=== PATIENT | female | born 1985 | race Two or more races ===

== ENCOUNTER 2020-10-26 00:46 | Inpatient (IN) | payer OTHER ==
[~2020-10-26] VITALS: Ht 170.2 cm; Wt 140.6 kg
--- NOTE | 2020-10-26 00:55 | NUR ---
cough/congestion and sob x2days to er bed 2
[2020-10-26 02:14] LABS: BASOPHILS # (AUTO) 0.1 /CMM (0.0-0.2); BASOPHILS % (AUTO) 0.5 % (0.0-2.0); EOSINOPHILS % (AUTO) 6.2 % (0.0-6.0); HEMATOCRIT 34 % (33-45); HEMOGLOBIN 10.6 g/dL (11.5-14.8); LYMPHOCYTES # (AUTO) 1.6 /CMM (0.8-4.8); LYMPHOCYTES % (AUTO) 15.2 % (20.0-44.0); MEAN CORPUSCULAR HGB CONC 31 g/dl (31.0-36.0); MEAN CORPUSCULAR VOLUME 69 fL (82-100); MONOCYTES # (AUTO) 0.5 /CMM (0.1-1.30); MONOCYTES % (AUTO) 5.4 % (2.0-12.0); NEUTROPHILS # (AUTO) 7.4 /CMM (1.8-8.9); NEUTROPHILS % (AUTO) 72.7 % (43.0-81.0); PLATELET COUNT (AUTO) 407 /CMM (150-450); RED BLOOD CELL COUNT(AUTO) 4.92 MIL/uL (4.0-5.2); WHITE BLOOD COUNT (AUTO) 10.2 K/uL (4.3-11.0)
[2020-10-26 02:22] LABS: CALCIUM, SERUM 8.8 mg/dL (8.5-10.1); CARBON DIOXIDE 26 mmol/L (21-32); CHLORIDE 102 mmol/L (98-107); CREATININE 0.8 mg/dL (0.6-1.3); GLUCOSE 117 mg/dL (74-106); POTASSIUM 3.9 mmol/L (3.5-5.1); SODIUM SERUM 135 mmol/L (136-145); UREA NITROGEN, BLOOD 10 mg/dL (7-18)
[2020-10-26] MEDS ORDERED: IOHEXOL-350 100 ML VIAL IV ONE (02:27)
[2020-10-26] MEDS ORDERED: CT SWABBABLE VALVE TRANS SET 1 EA INFUS.SET MC ONE (02:27)
[2020-10-26] MEDS ORDERED: IV NS 0.9% 250 ML IV ONE (02:27)
[2020-10-26 02:32] LABS: D-DIMER 2.07 mg/L(FEU (0.17-0.50)
[2020-10-26 02:45] LABS: BASOPHILS % (MANUAL) 0 % (0.0-2.0); EOSINOPHILS % (MANUAL) 7 % (0-4); LYMPHOCYTES % (MANUAL) 20 % (16-48); MONOCYTES % (MANUAL) 9 % (0-11.0); NEUTROPHILS % (MANUAL) 64 (42-76)
--- NOTE | 2020-10-26 02:50 | NUR ---
pt taken to ct
[2020-10-26] MEDS ORDERED: AZIT250T13 PO (04:07)
--- NOTE | 2020-10-26 04:18 | NUR ---
covid swab collected and sent out
[2020-10-26] MEDS ORDERED: AZITHROMYCIN 500 MG in IV D5W 250 ML IV ONE (04:30)
[2020-10-26] MEDS ORDERED: CEFTRIAXONE 1GM BAG (ER ONLY) 1 GM/50 ML PIGGYBACK IV ONE (04:30)
[2020-10-26] MEDS ORDERED: predniSONE 50 MG TABLET PO ONE (04:30)
[2020-10-26] MEDS ORDERED: predniSONE 20 MG TABLET ONE (04:43)
[2020-10-26] MEDS ORDERED: AZITHROMYCIN 500 MG VIAL ONE (04:43)
--- NOTE | 2020-10-26 05:20 | NUR ---
CALLED NURSING SUP FOR BED
[2020-10-26 05:23] LABS: C-REACTIVE PROTEIN 3.8 mg/dL (0.0-0.9)
--- NOTE | 2020-10-26 05:34 | NUR ---
DR. STEPHENS SPEAKING WITH DR. BOWIE REGARDING ADMISSION
--- NOTE | 2020-10-26 05:37 | NUR ---
bed 109
--- NOTE | 2020-10-26 05:52 | NUR ---
report called in to dipak monson
[2020-10-26 06:00] VITALS: BP 146/81
[2020-10-26] MEDS ORDERED: MAG HYDROX/AL HYDROX/SIMETH 30 ML UDC PO PRN (06:00)
[2020-10-26] MEDS ORDERED: ONDANSETRON HCL/PF 4 MG/2 ML VIAL IVP PRN (06:00)
[2020-10-26] MEDS ORDERED: MAGNESIUM HYDROXIDE 30 ML UDC PO PRN (06:00)
[2020-10-26] MEDS ORDERED: ZOLPIDEM TARTRATE 5 MG TABLET PO PRN (06:00)
[2020-10-26] MEDS ORDERED: Z GUARD REMEDY 2 OZ OINT TP PRN (06:00)
[2020-10-26] MEDS ORDERED: ACETAMINOPHEN 325 MG TABLET PO PRN (06:00)
--- NOTE | 2020-10-26 06:00 | NUR ---
ADMIT NOTE RECEIVED PATIENT FROM ER TO ROOM 109. PATIENT ABLE TO AMBULATE FROM GURNEY TO BED SAFELY. ALERT AND ORIENTED X4, ABLE TO MAKE NEEDS KNOWN. ON 8L VIA NASAL CANNULA, O2 SAT 94%. WITH PRODUCTIVE COUGH, PINK TINGED SPUTUM. NO SOB AT THIS TIME. DENIES ANY PAIN OR DISCOMFORT. WITH IV ACCESS ON RIGHT AC #20 PATENT AND INTACT. SKIN IS INTACT. ORIENTED PATIENT TO ROOM AND CALL LIGHT. BED LOCKED AND IN LOWEST POSITION. CALL LIGHT WITHIN REACH. WILL ENDORSE TO AM SHIFT.
--- NOTE | 2020-10-26 07:30 | NUR ---
RN OPENING NOTES RECEIVED PT AWAKE, A/O X4. ON 8L O2 VIA NASAL CANNULA, O2 SAT 94%. WITH PRODUCTIVE COUGH. NO SOB AT THIS TIME. DENIES ANY PAIN OR DISCOMFORT. IV ACCESS ON RAC #20 INTACT, PATENT AND FLUSHED. SKIN IS INTACT. AMBULATORY. SAFETY MEASURES IN PLACE. CALL LIGHT WITHIN REACH. BED LOCKED AND IN LOWEST POSITION WITH SIDE RAILS UP X2. WILL CONTINUE TO MONITOR.
[2020-10-26 08:00] VITALS: BP 149/98
[2020-10-26] MEDS: DEXAMETHASONE SOD PHOSPHATE 10 MG/ML VIAL IV SCH (08:26)
[2020-10-26] MEDS ORDERED: ALBUTEROL SULFATE INH 18 GM HFA.AER.AD IH PRN (10:30)
[2020-10-26] MEDS: OSELTAMIVIR PHOSPHATE 75 MG CAPSULE PO SCH ×2 (10:51→17:37)
[2020-10-26] MEDS: methylPREDNISolone SOD SUCC 125 MG/2ML VIAL IV SCH ×2 (10:51→17:38)
[2020-10-26] MEDS: ENOXAPARIN SODIUM 40 MG/0.4 ML DISP.SYRIN SQ SCH (10:54)
[2020-10-26 12:00] VITALS: BP 144/89
[2020-10-26 16:00] VITALS: BP 138/78
--- NOTE | 2020-10-26 18:55 | NUR ---
RN CLOSING NOTES NO SIGNIFICANT CHANGES THROUGHOUT THE SHIFT. NO SOB OR ANY DISTRESS. NO PAIN REPORTED AT THIS TIME. ALL DUE MEDS GIVEN. NEEDS ATTENDED. KEPT CLEAN AND DRY. SAFETY MEASURES STILL IN PLACE. ISOLATION PRECAUTIONS MAINTAINED. WILL ENDORSE TO NIGHT RN FOR [place].
[2020-10-26 20:00] VITALS: BP 150/83
[2020-10-26] MEDS: CEFTRIAXONE 1 G in IV D5W 50 ML IV SCH (20:38)
[2020-10-26] MEDS ORDERED: HYDROCODONE/APAP 5/325MG TABLET PO PRN (21:00)
[2020-10-27] VITALS: BP 145/71
[2020-10-27] MEDS: methylPREDNISolone SOD SUCC 125 MG/2ML VIAL IV SCH ×3 (01:29→17:04)
[2020-10-27 04:00] VITALS: BP 151/89
[2020-10-27 07:05] LABS: BASOPHILS % (AUTO) 0.1 % (0.0-2.0); HEMATOCRIT 34 % (33-45); HEMOGLOBIN 10.5 g/dL (11.5-14.8); LYMPHOCYTES # (AUTO) 1.3 /CMM (0.8-4.8); LYMPHOCYTES % (AUTO) 8.3 % (20.0-44.0); MEAN CORPUSCULAR HGB CONC 31 g/dl (31.0-36.0); MEAN CORPUSCULAR VOLUME 70 fL (82-100); MONOCYTES # (AUTO) 0.4 /CMM (0.1-1.30); MONOCYTES % (AUTO) 2.4 % (2.0-12.0); NEUTROPHILS # (AUTO) 13.8 /CMM (1.8-8.9); NEUTROPHILS % (AUTO) 89.2 % (43.0-81.0); PLATELET COUNT (AUTO) 457 /CMM (150-450); RED BLOOD CELL COUNT(AUTO) 4.89 MIL/uL (4.0-5.2); WHITE BLOOD COUNT (AUTO) 15.5 K/uL (4.3-11.0)
[2020-10-27 07:12] LABS: CALCIUM, SERUM 8.9 mg/dL (8.5-10.1); CREATININE 0.8 mg/dL (0.6-1.3); MAGNESIUM 2.2 mg/dL (1.8-2.4); PHOSPHORUS 3.5 mg/dL (2.5-4.9); POTASSIUM 4.1 mmol/L (3.5-5.1)
--- NOTE | 2020-10-27 07:50 | NUR ---
RN NOTE PATIENT IS IN BED WITH HOB AT SEMI FOWLERS POSITION. PATIENT IS ON 8L NC WITH NO SIGNS OF LABORED BREATHING. PATIENT IS AOX4. RAC #20 IS PATENT AND INTACT. BED IS LOCKED IN THE LOWEST POSITION, 3 GUARD RAILS RAISED, CALL TEJEDA WITHIN REACH, AND ALL HOSPITAL SAFETY PRECAUTIONS ARE BEING FOLLOWED. WILL CONTINUE TO MONITOR THROUGHOUT SHIFT.
[2020-10-27 08:00] VITALS: BP 149/93
[2020-10-27] MEDS: OSELTAMIVIR PHOSPHATE 75 MG CAPSULE PO SCH ×2 (08:28→16:47)
[2020-10-27] MEDS: AZITHROMYCIN 250 MG TABLET PO SCH (08:28)
[2020-10-27] MEDS: DEXAMETHASONE SOD PHOSPHATE 10 MG/ML VIAL IV SCH (08:29)
[2020-10-27] MEDS: ENOXAPARIN SODIUM 40 MG/0.4 ML DISP.SYRIN SQ SCH (08:31)
[2020-10-27 08:49] LABS: LYMPHOCYTES % (MANUAL) 7 % (16-48); NEUTROPHILS % (MANUAL) 90 (42-76)
[2020-10-27 08:50] LABS: MONOCYTES % (MANUAL) 3 % (0-11.0)
--- NOTE | 2020-10-27 11:49 | NUR ---
RN NOTE NOTIFIED [employer]IONICS SYSTEMS TECHNICIAN KJ GOMEZ FOR BP 173/98.
[2020-10-27 12:00] VITALS: BP 173/98
--- NOTE | 2020-10-27 15:09 | NUR ---
RN NOTE PCR TEST COLLECTED AND RETURNED TO LAB.
[2020-10-27 16:00] VITALS: BP 178/94
--- NOTE | 2020-10-27 16:18 | NUR ---
RN NOTE NOTIFIED CHERYL UNDERWOOD OF .
[2020-10-27] MEDS: LISINOPRIL (5MG) 5 MG TABLET PO SCH (16:47)
[2020-10-27] MEDS: LORAZEPAM INJ 2 MG/ML VIAL IV PRN (16:56)
--- NOTE | 2020-10-27 18:36 | NUR ---
RN NOTE PATIENT IS IN BED WITH HOB AT SEMI FOWLERS POSITION. PATIENT IS ON 8L NC WITH NO SIGNS OF LABORED BREATHING. PATIENT IS AOX4. RAC #20 IS PATENT AND INTACT. BED IS LOCKED IN THE LOWEST POSITION, 3 GUARD RAILS RAISED, CALL TEJEDA WITHIN REACH, AND ALL HOSPITAL SAFETY PRECAUTIONS ARE BEING FOLLOWED. ALL DUE MEDS GIVEN AND PATIENT REMAINED STABLE THROUGHOUT SHIFT. WILL ENDORSE TO TOBACCO WAREHOUSE MANAGER RN.
[2020-10-27 20:00] VITALS: BP 160/88
--- NOTE | 2020-10-27 20:08 | NUR ---
RN NOTE PATIENT ALERT AND ORIENTED X4, ABLE TO MAKE NEEDS KNOWN. ON O2 8L VIA NASAL CANNULA, NO SIGNS OF RESPIRATORY DISTRESS. DENIES ANY PAIN. AMBULATORY. IV ACCESS ON RIGHT AC #20 PATENT AND INTACT. BED LOCKED AND IN LOWEST POSITION. CALL LIGHT WITHIN REACH. ALL NEEDS ANTICIPATED.
[2020-10-27] MEDS: CEFTRIAXONE 1 G in IV D5W 50 ML IV SCH (20:22)
[2020-10-28] VITALS: BP 147/87
[2020-10-28] MEDS: methylPREDNISolone SOD SUCC 125 MG/2ML VIAL IV SCH ×3 (02:44→17:19)
[2020-10-28 04:00] VITALS: BP 153/86
[2020-10-28 06:36] LABS: BASOPHILS # (AUTO) 0.1 /CMM (0.0-0.2); BASOPHILS % (AUTO) 0.4 % (0.0-2.0); EOSINOPHILS % (AUTO) 0.2 % (0.0-6.0); HEMATOCRIT 35 % (33-45); HEMOGLOBIN 10.7 g/dL (11.5-14.8); LYMPHOCYTES # (AUTO) 1.3 /CMM (0.8-4.8); LYMPHOCYTES % (AUTO) 7.7 % (20.0-44.0); MEAN CORPUSCULAR HGB CONC 31 g/dl (31.0-36.0); MEAN CORPUSCULAR VOLUME 70 fL (82-100); MONOCYTES # (AUTO) 0.5 /CMM (0.1-1.30); NEUTROPHILS # (AUTO) 14.7 /CMM (1.8-8.9); NEUTROPHILS % (AUTO) 88.7 % (43.0-81.0); PLATELET COUNT (AUTO) 434 /CMM (150-450); RED BLOOD CELL COUNT(AUTO) 4.95 MIL/uL (4.0-5.2); WHITE BLOOD COUNT (AUTO) 16.6 K/uL (4.3-11.0)
--- NOTE | 2020-10-28 06:52 | NUR ---
RN NOTE PATIENT ALERT AND ORIENTED X4 ON O2 8L VIA NASAL CANNULA, NO SIGNS OF RESPIRATORY DISTRESS. DENIES ANY PAIN. AMBULATORY. IV ACCESS ON RIGHT AC #20 PATENT AND INTACT. ALL DUE MEDS GIVEN ORDERED. NO SIGNIFICANT CHANGES DURING THIS SHIFT. BED LOCKED AND IN LOWEST POSITION. CALL LIGHT WITHIN REACH. WILL ENDORSE TO AM SHIFT.
[2020-10-28 07:19] LABS: CALCIUM, SERUM 8.5 mg/dL (8.5-10.1); CREATININE 0.7 mg/dL (0.6-1.3); MAGNESIUM 2.2 mg/dL (1.8-2.4); POTASSIUM 4.1 mmol/L (3.5-5.1)
--- NOTE | 2020-10-28 07:30 | NUR ---
RN OPENING NOTES RECEIVED PATIENT AWAKE ALERT AND ORIENTED. SATURATING 100% ON 8L NASAL CANNULA. ST ON TELEMETRY. PERIPHERAL LINE INTACT. NO COMPLAINS OF PAIN. AMBULATORY. SAFETY CHECKS IN PLACE. WILL CONTINUE TO MONITOR.
[2020-10-28 07:32] LABS: THYROID STIMULATING HORMONE 0.137 uIU/mL (0.358-3.74)
[2020-10-28 08:00] VITALS: BP 159/85
[2020-10-28] MEDS: OSELTAMIVIR PHOSPHATE 75 MG CAPSULE PO SCH ×2 (08:24→17:19)
[2020-10-28] MEDS: LISINOPRIL (5MG) 5 MG TABLET PO SCH (08:24)
[2020-10-28] MEDS: AZITHROMYCIN 250 MG TABLET PO SCH (08:25)
[2020-10-28] MEDS: ENOXAPARIN SODIUM 40 MG/0.4 ML DISP.SYRIN SQ SCH (08:26)
[2020-10-28 12:00] VITALS: BP 149/96
[2020-10-28 16:00] VITALS: BP 152/88
--- NOTE | 2020-10-28 16:00 | NUR ---
RN NOTE PER LAB, PCR SAMPLES ARE BEING SENT OUT AT 8PM EACH DAY. RESULTS ARE EXPECTED TO COME THE NEXT DAY AROUND 8-10PM.
--- NOTE | 2020-10-28 18:29 | NUR ---
RN CLOSING NOTES PATIENT REMAINS AWAKE ALERT AND ORIENTED. SATURATING 100% ON 8L NASAL CANNULA. STILL ST ON TELEMETRY. PERIPHERAL LINE INTACT. NO COMPLAINS OF PAIN. AMBULATORY. SAFETY CHECKS IN PLACE. WILL ENDORSE TO NIGHT RN FOR CONTINUITY OF CARE.
--- NOTE | 2020-10-28 19:45 | NUR ---
RN OPENING NOTE REC'D PT IN BED, A/O X4 ON 8L OF O2 VIA NASAL CANNULA WITH HUMIDIFICATION, NO SOB OR RESP DISTRESS NOTED. O2 SAT 99%. PT IS SINUS TACH ON TELE MONITOR WITH HEART RATE OF 103. PT BASELINE. PT IS AMBULATORY WITH STEADY GAIT. IV SITE RIGHT AC LEAKING, WILL REPLACE. IV SITE DISCONTINUED CATHETER INTACT GAUZE APPLIED WITH PRESSURE FOR 1MIN NO S/S OF BLEEDING NOTED. PT DENIES PAIN. ISOLATION PRECAUTIONS IN PLACE FOR PCR PENDING. SIDE RAILS UP X2 BED LOCKED IN LOWEST POSITION WITH BED ALARM [employer] ELECTRICAL SYSTEMS DESIGNER LIGHT WITHIN REACH. WILL CONT TO MONITOR CLOSELY THROUGHOUT SHIFT.
[2020-10-28 20:00] VITALS: BP 159/88
--- NOTE | 2020-10-28 20:30 | NUR ---
RN NOTE NEW IV SITE PLACED. RIGHT HAND #[id number]. GOOD BLOOD RETURN.
[2020-10-28] MEDS: CEFTRIAXONE 1 G in IV D5W 50 ML IV SCH (20:37)
[2020-10-29] VITALS (7 sets, daily range): BP systolic 140–173; BP diastolic 69–91
[2020-10-29] MEDS: methylPREDNISolone SOD SUCC 125 MG/2ML VIAL IV SCH ×2 (02:38→09:01)
[2020-10-29 05:56] LABS: HEMATOCRIT 34 % (33-45); HEMOGLOBIN 10.5 g/dL (11.5-14.8); LYMPHOCYTES # (AUTO) 1.4 K/uL (0.8-4.8); LYMPHOCYTES % (AUTO) 11.8 % (20.0-44.0); MEAN CORPUSCULAR HGB CONC 30 g/dl (31.0-36.0); MEAN CORPUSCULAR VOLUME 70 fL (82-100); MONOCYTES # (AUTO) 0.7 K/uL (0.1-1.30); MONOCYTES % (AUTO) 5.9 % (2.0-12.0); NEUTROPHILS # (AUTO) 9.9 K/uL (1.8-8.9); NEUTROPHILS % (AUTO) 82.3 % (43.0-81.0); PLATELET COUNT (AUTO) 476 K/uL (150-450); RED BLOOD CELL COUNT(AUTO) 4.88 MIL/uL (4.0-5.2)
--- NOTE | 2020-10-29 06:42 | NUR ---
RN OPENING NOTE NO SIGNIFICANT CHANGES.PT REMAINS ON 6L OF O2 VIA NASAL CANNULA WITH HUMIDIFICATION, NO SOB OR RESP DISTRESS NOTED. PT IS NSR HEART RATE 86. PT DENIES PAIN. ALL NEEDS ATTENDED ALL DUE MEDS GIVEN ORDERED. SAFETY MEASURES IN PLACE. SIDE RAILS UP X2 BED LOCKED IN LOWEST POSITION WITH BED ALARM ROADABILITY MACHINE OPERATOR LIGHT WITHIN REACH. WILL CONT TO MONITOR CLOSELY THROUGHOUT SHIFT. Addendum: 10/29/20 at 0654 by PATTY ALONSO RN DISREGARD THIS NOTE
--- NOTE | 2020-10-29 06:54 | NUR ---
RN CLOSING NOTE NO SIGNIFICANT CHANGES. PT REMAINS ON 6L OF O2 VIA SIMPLE MASK. NO SOB OR RESP DISTRESS NOTED. PT IS NSR HEART RATE 83. PT DENIES PAIN. ALL NEEDS ATTENDED ALL DUE MEDS GIVEN ORDERED. SAFETY MEASURES IN PLACE. APPLICABLE ISOLATION PRECAUTIONS IN PLACE. SIDE RAILS UP X2 BED LOCKED IN LOWEST POSITION WITH BED ALARM DIETITIAN ASSISTANT LIGHT WITHIN REACH. WILL ENDORSE TO DAY SHIFT FOR CONTINUATION OF CARE
[2020-10-29 07:16] LABS: CALCIUM, SERUM 8.2 mg/dL (8.5-10.1); CREATININE 0.6 mg/dL (0.6-1.3); POTASSIUM 4.1 mmol/L (3.5-5.1)
[2020-10-29 07:17] LABS: MAGNESIUM 2.4 mg/dL (1.8-2.4)
--- NOTE | 2020-10-29 07:50 | NUR ---
GEOPHYSICAL ENGINEER OPENING NOTE PATIENT IS IN BED RESTING, PATIENT IS IN NO ACUTE DISTRESS. PATIENT IS ON OXYGEN ON 8L, TOLERATING WELL SETTING 98% PATIENT IS ON TELE MONITOR READING SINUS TACHY. SAFETY PRECAUTIONS ARE ON BED IS LOCKED IN THE LOWEST POSITION, WITH SIDE RAILS UP, CALL LIGHT WITHIN REACH, WILL CONTINUE TO MONITOR CLOSELY.
[2020-10-29] MEDS: LISINOPRIL (5MG) 5 MG TABLET PO SCH (09:01)
[2020-10-29] MEDS: OSELTAMIVIR PHOSPHATE 75 MG CAPSULE PO SCH ×2 (09:01→16:57)
[2020-10-29] MEDS: AZITHROMYCIN 250 MG TABLET PO SCH (09:01)
[2020-10-29] MEDS: ENOXAPARIN SODIUM 40 MG/0.4 ML DISP.SYRIN SQ SCH (09:03)
--- NOTE | 2020-10-29 18:37 | NUR ---
SPRAY DYER CLOSING NOTE PATIENT IS IN BED RESTING, PATIENT IS IN NO ACUTE DISTRESS. PATIENT IS ON OXYGEN ON 8L, TOLERATING WELL SETTING 98% PATIENT IS ON TELE MONITOR READING SINUS TACHY. SAFETY PRECAUTIONS ARE ON BED IS LOCKED IN THE LOWEST POSITION, WITH SIDE RAILS UP, CALL LIGHT WITHIN REACH, ENDORSE PATIENT TO FIRE TECHNOLOGY INSTRUCTOR NURSE.
[2020-10-29] MEDS: LORAZEPAM INJ 2 MG/ML VIAL IV PRN (20:15)
--- NOTE | 2020-10-29 20:15 | NUR ---
WEIGHMASTER LEAD NOTES PT ANXIOUS AT THIS TIME AND REQUESTING FOR ATIVAN. ATIVAN GIVEN ORDERED. WILL CONTINUE TO MONITOR.
[2020-10-29] MEDS: CEFTRIAXONE 1 G in IV D5W 50 ML IV SCH (20:18)
[2020-10-30] VITALS: BP 158/77
[2020-10-30 04:00] VITALS: BP 150/85
[2020-10-30 06:01] LABS: BASOPHILS % (AUTO) 0.1 % (0.0-2.0); HEMATOCRIT 35 % (33-45); HEMOGLOBIN 10.7 g/dL (11.5-14.8); LYMPHOCYTES % (AUTO) 18.3 % (20.0-44.0); MEAN CORPUSCULAR HGB CONC 31 g/dl (31.0-36.0); MEAN CORPUSCULAR VOLUME 69 fL (82-100); MONOCYTES # (AUTO) 0.7 K/uL (0.1-1.30); MONOCYTES % (AUTO) 6.6 % (2.0-12.0); NEUTROPHILS # (AUTO) 8.4 K/uL (1.8-8.9); PLATELET COUNT (AUTO) 479 K/uL (150-450); RED BLOOD CELL COUNT(AUTO) 4.97 MIL/uL (4.0-5.2); WHITE BLOOD COUNT (AUTO) 11.1 K/uL (4.3-11.0)
[2020-10-30 06:10] LABS: CREATININE 0.8 mg/dL (0.6-1.3); MAGNESIUM 2.1 mg/dL (1.8-2.4); POTASSIUM 3.9 mmol/L (3.5-5.1)
--- NOTE | 2020-10-30 06:18 | NUR ---
REPAIRER MAINTENANCE BUILDING NOTES AWAKE & RESPONSIVE. NOT IN ANY DISTRESS. NO SOB NOTED. DENIES ANY PAIN OR DISCOMFORT AT THIS TIME. ON TELE SR @ 86 WITH IV-HL PATENT & INTACT. MONITORED ACCORDINGLY. CALL LIGHT WITHIN REACH. BED IN LOWEST POSITION. SR UP X 2 FOR SAFETY. WILL ENDORSE TO NEXT SHIFT.
--- NOTE | 2020-10-30 07:30 | NUR ---
SENIOR LINUX UNIX ADMINISTRATOR OPENING NOTES Patient is alert and oriented. Patient is breathing even and unlabored. On 3 liters with 02 sat of 99%. Patient noted with 20 gauze right hand iv site saline lock. Will continue to monitor. Call light with in reach.
[2020-10-30 08:00] VITALS: BP 150/85
[2020-10-30] MEDS ORDERED: methylPREDNISolone SOD SUCC 40 MG/ML VIAL IV SCH (09:00)
[2020-10-30 09:06] VITALS: BP 165/85
[2020-10-30] MEDS: LISINOPRIL (5MG) 5 MG TABLET PO SCH (09:06)
[2020-10-30] MEDS: OSELTAMIVIR PHOSPHATE 75 MG CAPSULE PO SCH (09:06)
[2020-10-30] MEDS: AZITHROMYCIN 250 MG TABLET PO SCH (09:06)
[2020-10-30] MEDS: ENOXAPARIN SODIUM 40 MG/0.4 ML DISP.SYRIN SQ SCH (09:17)
[2020-10-30 10:20] LABS: ABG BASE EXCESS 2.4 mmol/L; ABG OXYGEN SATURATION 92.5 % (92.0-98.5); ABG PCO2 41.5 mmHg (35.0-45.0); ABG PO2 62.9 mmHg (75.0-100.0); AaDO2 37.1 mmHg; COHb 0.7 % (0.5-1.5); MetHb 0.2 % (0.0-1.5); O2Hb 91.7 % (94.0-97.0); SITE, ABG Right Femoral; VENT MODE, BG RA
--- NOTE | 2020-10-30 11:00 | NUR ---
Received order from CHERYL Walker to monitor 02 saturation on room air. Patient's 02 on room air 95%. Informed MD and patient monitored.
--- NOTE | 2020-10-30 15:04 | NUR ---
Patient was discharged to home in good stable condition. No c/o pain or discomfort. ON room air with o2 saturation of 95%. Patient teaching done regarding smoking cessation and limiting salt intake. Patient's vitals assessed. 150/70,63, 18,98.1,0/10. 02 sat of 96% room air. MD made aware regarding patient's bp reading during stay. Patient left the facility in private car with her . MD to send in prescriptions for bp medication and abx to pharmacy of choice.
[2020-10-30] MEDS ORDERED: DOXY100T2 PO (15:35)
[2020-10-30] MEDS ORDERED: ALBU18HF2 IH (15:35)
[2020-10-30] MEDS ORDERED: LISI-768 PO (15:35)
[2020-10-30] MEDS ORDERED: PRED20TA PO (15:39)
== END 2020-10-30 14:50 | disposition home or self-care (01) | DRG 139 ==
LOC: ER 00:51 → TELE1 05:40 → MEDSG1 10-30 08:54
PROVIDERS: ADMIT Internal Medicine; ATTEND Nurse Practitioner Family
DX: J12.9 Viral pneumonia, unspecified (principal); J96.01 Acute respiratory failure with hypoxia; E66.01 Morbid (severe) obesity due to excess calories; D50.9 Iron deficiency anemia, unspecified; F17.200 Nicotine dependence, unspecified, uncomplicated; G47.33 Obstructive sleep apnea (adult) (pediatric); Z20.822 Contact with and (suspected) exposure to COVID-19; Z68.42 Body mass index [BMI] 45.0-49.9, adult; D72.828 Other elevated white blood cell count; T38.0X5A Adverse effect of glucocorticoids and synthetic analogues, initial encounter; Y92.89 Other specified places as the place of occurrence of the external cause
CPT/HCPCS: 36415; 36600; 71045-TC; 80048-TC; 80061-TC; 82550-TC; 82728-TC; 83540-TC; 83615-TC; 83735-TC; 83880; 84100-TC; 84439-TC; 84443-TC; 84484-TC; 84702-TC; 85025-TC; 85378-TC; 85730-TC; 86140-TC; 87040-TC; 87081-TC; 93971-TC; C9803; G0378; J0456; J0696; J1100; J1650; J2060; J2920; J2930; J7050; J7060; Q9967; U0003

== ENCOUNTER 2021-05-11 03:37 | Emergency (ER) | payer OTHER ==
[~2021-05-11 03:37] MED LIST: ALBU18HF2 IH; DOXY100T2 PO; LISI-768 PO; PRED20TA PO
--- NOTE | 2021-05-11 04:18 | NUR ---
CALLED FOR TRIAGE , NO NASWER
--- NOTE | 2021-05-11 04:30 | NUR ---
CALLED FOR TRIAGE, NO ANSWER
== END 2021-05-11 04:31 | disposition left against medical advice (07) ==
LOC: ER 03:40
DX: Z53.21 Procedure and treatment not carried out due to patient leaving prior to being seen by health care provider (principal); Z79.899 Other long term (current) drug therapy

== ENCOUNTER 2021-10-16 11:12 | Emergency (ER) | payer OTHER ==
[~2021-10-16] VITALS: Ht 170.2 cm; Wt 113.4 kg
--- NOTE | 2021-10-16 11:51 | NUR ---
urine collected and sent to the lab
[2021-10-16] MEDS ORDERED: ONDANSETRON HCL/PF 4 MG/2 ML VIAL IVP ONE (12:00)
[2021-10-16] MEDS ORDERED: IV NS 0.9% 1,000 ML BAG IV ONE (12:00)
--- NOTE | 2021-10-16 12:00 | NUR ---
Iv incerted 20g in Rt ac. 1L ns bolus running. Zofran 4mg given without difficulty. VSS, No s/sxof distress present.
--- NOTE | 2021-10-16 12:00 | NUR ---
ADDENDUM: Intravenous End Time Documentation: Normal saline 1 liter (IV-WO) : start time: 1200 PM ; end time: 1300 PM : IV site: RAC # 20 Port # 1
[2021-10-16 12:10] LABS: BASOPHILS % (AUTO) 0.6 % (0.0-2.0); EOSINOPHILS % (AUTO) 1.1 % (0.0-6.0); HEMATOCRIT 33 % (33-45); HEMOGLOBIN 9.6 g/dL (11.5-14.8); LYMPHOCYTES # (AUTO) 1.6 K/uL (0.8-4.8); LYMPHOCYTES % (AUTO) 23.6 % (20.0-44.0); MEAN CORPUSCULAR HGB CONC 29 g/dl (31.0-36.0); MEAN CORPUSCULAR VOLUME 59 fL (82-100); MONOCYTES # (AUTO) 0.4 K/uL (0.1-1.30); MONOCYTES % (AUTO) 6.1 % (2.0-12.0); NEUTROPHILS # (AUTO) 4.7 K/uL (1.8-8.9); NEUTROPHILS % (AUTO) 68.6 % (43.0-81.0); PLATELET COUNT (AUTO) 319 K/uL (150-450); RED BLOOD CELL COUNT(AUTO) 5.54 MIL/uL (4.0-5.2); WHITE BLOOD COUNT (AUTO) 6.9 K/uL (4.3-11.0)
[2021-10-16 12:14] LABS: BILIRUBIN,URINE NEGATIVE (NEGATIVE); COLOR,URINE YELLOW (YELLOW); LEUKOCYTE ESTERASE ,URINE SMALL (NEGATIVE); NITRITE, URINE NEGATIVE (NEGATIVE); PH,URINE 6.5 (5.0-8.0); PROTEIN,URINE TRACE mg/dl (NEGATIVE); UGLUCOSE NEGATIVE (NEGATIVE)
[2021-10-16 12:19] LABS: BACTERIA,URINE None seen /HPF (None Seen); RBC,URINE 0-2 /HPF (0-2); SQUAMOUS EPITHELIAL CELL,UR Few /HPF (None Seen); WBC,URINE 0-2 /HPF (0-3)
[2021-10-16 12:28] LABS: ALBUMIN 3.3 g/dL (3.4-5.0); BILIRUBIN,DIRECT 0.6 mg/dL (0.0-0.2); BILIRUBIN,TOTAL 1.7 mg/dL (0.2-1.0); CALCIUM, SERUM 8.8 mg/dL (8.5-10.1); CREATININE 1.1 mg/dL (0.6-1.3); POTASSIUM 3.5 mmol/L (3.5-5.1); TOTAL PROTEIN, SERUM 7.8 g/dL (6.4-8.2)
[2021-10-16] MEDS ORDERED: ONDANSETRON HCL/PF 4 MG/2 ML VIAL ONE (13:12)
--- NOTE | 2021-10-16 14:40 | NUR ---
IV bolus completed without incident. Angio Dced and IV site dressed. Pt getting dressed to be dced home with .
--- NOTE | 2021-10-16 14:45 | NUR ---
Pt given DC instructions and confirmed understanding of aftercare. All questions answered. IV DCed by staff nurse. VSS, PE WNL:, Nausea has resolved, Pt denies any pain, sob, n/v, discomfort. Pt states that she feels much better and that issues have resolved. Pt signed out and walked out of dept with steady gait, accompanied by . No s/sxof distress noted.
[2021-10-16 14:59] VITALS: BP 128/78
== END 2021-10-16 14:30 | disposition home or self-care (01) ==
LOC: ER 11:18
DX: R11.2 Nausea with vomiting, unspecified (principal); R10.9 Unspecified abdominal pain; Z79.899 Other long term (current) drug therapy
CPT/HCPCS: 36415; 74176; 80048; 80076; 81001; 83690; 84703; 85025; 87086; 96361; 96374; 99284; J2405; J7030